=== PATIENT | male | born 2000 | race Caucasian/White ===

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

== ENCOUNTER 2024-10-26 08:39 | Emergency (ER) | payer MEDICAID ==
[~2024-10-26] VITALS: Ht 172.7 cm; Wt 64.3 kg
[~2024-10-26 08:39] MED LIST: NEOM28OI32 TP
[2024-10-26 09:00] VITALS: BP 117/67; PULSE 87; RESP 18; TEMP 98.1; O2SAT 98
== END 2024-10-26 09:26 | disposition home or self-care (01) ==
LOC: ER 08:40
DX: Z02.9 Encounter for administrative examinations, unspecified (principal); Z79.899 Other long term (current) drug therapy
CPT/HCPCS: 99281